=== PATIENT | female | born 1950 | race Caucasian/White ===

== ENCOUNTER → 2017-07-08 | Outpatient (CLI) | payer OTHER ==
[~2017-07-08] MED LIST: CELEXA40 MG PO; FENTANYL PA12 MCG/HR TP; HUMIRA20 MG/0.4 SQ; HYDROCODON-ACE1 EAC7 PO; HYDROCODONE-AP1 EAC6 PO; HYDROXYCHLOROQ200 M1 PO; MELOXICAM7.5 MG PO; MOBIC7.5 MG PO; NAPROSYN500 MG PO; VITAMIN D32000 UNIT PO
== END ==
LOC: CAT 10:56
DX: R07.9 Chest pain, unspecified (principal); R91.1 Solitary pulmonary nodule

== ENCOUNTER → 2017-08-11 | Outpatient (CLI) | payer OTHER | LOC: RAD 08-06 01:59 | DX: Z12.31 Encounter for screening mammogram for malignant neoplasm of breast (principal) ==

== ENCOUNTER → 2018-09-01 | Outpatient (CLI) | payer OTHER | LOC: RAD 08-12 12:05 | DX: Z12.31 Encounter for screening mammogram for malignant neoplasm of breast (principal) ==

== ENCOUNTER 2019-05-20 09:06 | Inpatient (IN) | payer OTHER ==
[~2019-05-20] VITALS: Ht 167.6 cm; Wt 63.5 kg
--- NOTE | ~2019-05-20 | HC ---
[facility] [place] [address] CONSULTATION Name: DARIUS LOPEZ Room #: 522B-B [facility] IN M.R.#: [id number] Admission: 05/20/19 ������������������ Attend Phys: Mitchel Rosen DO Discharge: 05/21/19 ������������������ Date of : 54 Report #: [id number] THIS REPORT FOR: //name// CC: Mitchel Rosen rAon Walker DATE OF SERVICE: 05/20/2019 REASON FOR CONSULTATION: Globus sensation. HISTORY OF PRESENT ILLNESS: The patient is a 69-year-old female known to our clinic from previous encounters. She presented to the Emergency Room this morning with increasing anxiety over globus sensation that had been present for an extended period of time. She had presented with this in our clinic in the remote past. She has denied any dysphagia, odynophagia, aspiration, neck pain or discomfort. She denies any sinus or rhinitis symptomatology. The discomfort was to the point she presented to Emergency Room with extreme anxiety and inappropriate comments about her mental health being affected by this sensation. I was asked to evaluate her in the psychiatric unit for elimination of the pathology that may be causing this sensation. While in the Emergency Department, she did have a soft tissue lateral neck x-ray, which showed an opaque small area on the posterior wall that appeared to be in the upper esophagus. PAST MEDICAL AND SURGICAL HISTORY: Notable for appendectomy, longstanding history of osteoarthritis, anxiety, depression and other psychiatric disorders. MEDICATIONS: At the time she was seen include atorvastatin, clonazepam on a p.r.n. basis, duloxetine, vitamin D . REVIEW OF SYSTEMS: Aside from the above mentioned GI and psychiatric history, is otherwise unremarkable. PHYSICAL EXAMINATION: She appears her stated height and age. She is anxious. She was examined in the psychiatric office. She is alert and oriented. She has a normal voice. She appeared very anxious. Examination of the ears was unremarkable for any impacting cerumen. Middle ear spaces were normal. Intranasal examination showed no sign of nasal polyposis or infection. Nasal mucosa is otherwise unremarkable. Oral cavity and oropharynx were otherwise normal. Palpation of the anterior neck revealed no adenopathy or thyromegaly. There are no midline neck masses. The pharynx within normal with a small. Flexible laryngoscopy was performed with the findings noted within the progress note. ASSESSMENT: History of globus sensation with increasing anxiety. No [facility] [address] [place] [address] CONSULTATION Name: DARIUS LOPEZ TAMIKA Room #: 522B-B [facility] IN M.R.#: [id number] Admission: 05/20/19 ������������������ Attend Phys: Mitchel Rosen DO Discharge: 05/21/19 ������������������ Date of : 54 Report #: [id number] hypopharyngeal or laryngeal pathology is identified. I suspect this is all supratentorial, may be associated with some gastroesophageal or laryngopharyngeal reflux. To further evaluate the area of concern seen on the soft tissue x-ray, would actually require an EGD and she may consider consultation with gastroenterology as an outpatient for this. Thank you for the consultation. PROCEDURE NOTE: After obtaining consent, topical Pontocaine anesthesia was applied to the right naris. After waiting several minutes, flexible nasal laryngoscope was advanced through the right naris and into the nasopharynx, oropharynx and hypopharynx. Visualization showed healthy-appearing nasal mucosa. Inferior middle turbinates were unremarkable. Postcricoid area appears normal. Nasopharynx was unremarkable. Oropharynx showed normal appearing mucosa. The laryngeal apparatus is intact. Both vocal cords moved to midline normally. There was a moderate amount of postcricoid present. The piriform sinus mucosa appears unremarkable. The epiglottis and vallecula were normal. The scope was withdrawn. The patient tolerated the procedure well. ��������������������������������������������� ���������������������������������������� By: ��������������������������������������������� [id number] Juan Manuel Crockett MD /jonathan
[2019-05-20 09:07] VITALS: BP 148/99
[2019-05-20] MEDS ORDERED: XANAX 0.5 MG0.5 MG PO (09:33)
[2019-05-20] MEDS ORDERED: LIPITOR10 MG PO (09:34)
[2019-05-20 09:55] LABS: ABSOLUTE NEUTROPHILS 4.4 thou/uL (1.4-8.2); BASOPHILS 0.6 % (0.0-2.0); EOSINOPHILS 1.9 % (0.0-3.0); HEMOGLOBIN 13.2 gm/dL (12.0-15.0); LYMPHOCYTES 22.2 % (24.0-44.0); MCH 30.8 pg (26.0-34.0); MCHC 33.8 g/dL (28.0-37.0); MCV 91.1 fL (80.0-100.0); MONOCYTES 6.1 % (1.0-8.0); PLATELET COUNT 240 thou/uL (150-400); POLYS 69.2 % (36.0-66.0); RBC 4.28 mil/uL (4.20-5.00); RDW 12.8 % (10.5-14.5); WBC 6.4 thou/uL (4.0-11.0)
[2019-05-20 09:59] LABS: CALCIUM 9.3 mg/dL (8.5-10.1); CREATININE 0.6 mg/dL (0.6-1.0); POTASSIUM 3.8 mmol/L (3.5-5.1)
[2019-05-20 10:01] LABS: URINE BILIRUBIN NEGATIVE (Negative); URINE BLOOD NEGATIVE (Negative); URINE CLARITY CLEAR; URINE COLOR YELLOW; URINE GLUCOSE-RANDOM* NEGATIVE (Negative); URINE KETONES NEGATIVE (Negative); URINE LEUKOCYTES NEGATIVE (Negative); URINE NITRITE NEGATIVE (Negative); URINE PROTEIN (DIPSTICK) NEGATIVE (Negative); URINE SPECIFIC GRAVITY <= 1.005 (1.005-1.035); URINE UROBILINOGEN 0.2 E.U./dl (0.2-1.0)
[2019-05-20 10:05] LABS: ALBUMIN 3.8 g/dL (3.4-5.0); TOTAL BILIRUBIN 0.5 mg/dL (<0.1-1.0); TOTAL PROTEIN 7.7 g/dL (6.4-8.2)
[2019-05-20 12:13] VITALS: BP 160/91
[2019-05-20] MEDS ORDERED: CYMBALTA60 MG PO (13:39)
[2019-05-20 15:06] VITALS: BP 156/83
--- NOTE | 2019-05-20 15:16 | NUR ---
69 YEAR OLD FEMALE ARRIVES TO UNIT VIA WHEELCHAIR FROM ER WITH REPORTED INCREASE IN DEPRESSION,ANXIETY. DURING ADMIT INTERVIEW IS TEARFIL STATING "I CAN'T HANDLE THIS I FEEL LIKE I AM IN HELL-I CAN'T STOP CRYING-I CAN'T FUNCTION" DENIES SUICIDAL IDEATION NOW OR IN PAST-DOES REPORT INITIAL AND TERMINAL INSOMNIA,DECREASED APPETITE. CONVERSATION IS SOMATICALLY FOCUSED-REFERING TO LONG STANDING HX OF DYSPHAGIA AND DESPITE EGD DONE APPROX 9 MTHS AGO IN ADDITION TO X-RAY DONE TODAY IN ER WHICH WERE NEGATIVE FOR ACUTE FINDINGS STATES SEVERAL TIMES THAT SHE BELIEVES SHE HAS CANCER "IT IS MY OWN FAULT I RECENTLY STOPPED SMOKING" ORIENTED TO ROOM AND UNIT-BELONGINGS INVENTORY COMPLETED-MEDS VERIFIED WITH OP PHARAMCY- PT DOES REPORT MANRIQUE PAIN RATED A 5 ON 1-10 SCALE-TYLENOL 650MG PO PRN GIVEN AT 1400 WITH GOOD RESULTS. GAIT STEADY WITHOUT ASSISTIVE DEVICES-
--- NOTE | 2019-05-20 16:33 | NUR ---
PSYCHOSOCIAL ASSESSMENT Diagnosis: DEPRESSION,THROAT PAIN Admit Date: 05/20/19 Psychiatrist: JONI Symptoms associated with current admission: Anxiety/panic Depressed mood Presenting problems: Worrying a lot. Throat hurting and ears hurting. Pt. stated that she hates her job. Pt. stated that she feels that she is "OCD" and that she can't seem to enjoy anything anymore. Precipitating Factors: Work problems Medical condition Comments: History of High Risk Behavors: Other Suicide Risk Factors: E A-Signs of alcohol/substance abuse w/ suicide ideation B-Recent suicidal thoughts or attempts C-Recent thoughts or attempts of harming someone else D-Altered mental status due to psychiatric/chem dep etiology E-The behavior exists - add comment PSYCHIATRIC HISTORY Age of onset: 69 Prior hospitalizations: Hospital names and dates, if available: Most Recent Outpatient HX: Denies prior OP services Additional information: Legal Status: Voluntary Guardian/Conservatorship type: None Contact name: Contact phone: Other: Name: Phone: Other legal issues: (Arrests/convictions Current Status) No recent hx P.O. Name and Phone #: FAMILY HISTORY Place of : [place] Raised in: [place] # Siblings & order: Two sisters, Three Brothers Describe relationships within family of origin: Pt. stated that she has a close relationship with her family. Any psychiatric or substance abuse problems within family of origin: N Has patient been sexually or physically abused, neglected or been taken advantage of financially? N Has the abuse been reported? N Other pertinent family information: Marital history/significant relationships: Domestic violence: N Children ages & who is caring for them: Two boys ages 45 and 43, Two girls 33 and 31 Is child welfare involved? N Drug history: Pt. reports thats she only takes hydrocodone that is perscribed for Osteoprosis Alcohol Use: Yes, current Frequency: Special Occasions Quantity: 1-2 Have you ever felt you ought to Cut down on drinking? Have people Annoyed you by criticizing your drinking? Have you ever felt bad or Guilty about your drinking? 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 AXIS SCREENING TOOL [place] I Mood Disorders: Depression Anxiety Disorder [place] II Personality/Mental Retardation: [place] III Medical Impairment: Other Functional-i.e. blindness [place] IV Problem(s) with: [place] V: Additional Richmond comments: PERSONAL BACKGROUND Relevant cultural issues (ethnicity, values, beliefs, spiritual): None Mormonism: Christianity Importance of restorationist to patient: Medium What hobbies/interests does the patient have? Reading, spending time with grandkids, watching TV. Sexual orientation (relevant impact to current treatment): Female : Where did you serve: Branch of service: Rank: Discharge status: Are you a combat ? Occupational/Work: Do you work? Y Do you want to work? Y How many hours do you work/week? 40 How many jobs have you had in the past 5 years? 1 Do you need assistance finding a job? N Does the patient need assistance in job training? N Source of income: Employment SSI Does patient have a Payee? N Payee name: Approximate monthly income: 1999 Does patient have adequate funds for next 30 days? 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 is livin[address] [place] [address] [place] [address] Does the patient plan to continue there after DC? Yes Patient lives with: Child/children Will family/significant other be involved in treatment? Other community support services utilized: None Support System Available (family/friend) Name: Gloria Hinds Phone: [phone] Relationship: Daughter Name: Phone: Relationship: Name: Phone: Relationship: Patient strengths: Family support Motivated Humor Education Patient's assets: Good self care Adequate education Employed Verbal Own transportation Positive support system Patient's weaknesses: Chronic hx mental illness Health problems Other Additional weaknesses: Patient's perception of current social insurance administrator/case management needs: Pt. stated that she feels that she is pretty "OCD" and organized. PRELIMINARY DISCHARGE PLAN Discharge plan/Community resource contacts: Plan to dc back to apartment. Pt. stated that she would like to follow up with some counceling. Discharge needs: Pt. stated that she may need help setting up counceling, however that she sees a psychiatrist that may be able to assist with this. Problems anticipated on discharge: Comments: (factors affecting DC plan/pt. response/interventions) Pt. stated that she is hoping that she can learn some coping techniques to assist her with further issues later on.
[2019-05-20 19:20] VITALS: BP 102/54
--- NOTE | 2019-05-20 22:59 | NUR ---
ASSUMED CARE @ 20:30, COOPERATED WITH ASSESSMENT, HS MEDS TAKEN WHOLE WITH WATER. PAIN MEDS NORCO AND ANXIETY MEDS GIVEN @ 21:30 FOR MANRIQUE PAIN AND ANXIETY. RESOLVED UPON ASSESSMENT, PT ASLEEP, EYES CLOSED, RESPIRATIONS EVEN AND UNLABORED. WILL COTINUE TO MONITOR Q 12 MINUTES FOR PT SAFETY.
[2019-05-20 23:15] VITALS: BP 102/54
[2019-05-20 23:30] VITALS: BP 102/54
--- NOTE | 2019-05-21 05:34 | NUR ---
slept 11.2 hours overnight.
[2019-05-21 07:30] VITALS: BP 100/59
[2019-05-21] MEDS ORDERED: CARAFATE 1 GM TA1 G1 PO (10:46)
[2019-05-21] MEDS ORDERED: PROTONIX40 M1 PO (10:47)
[2019-05-21 12:02] VITALS: BP 102/54
--- NOTE | 2019-05-21 14:25 | NUR ---
DISCHARGE INSTRUCTIONS REVIEWED WITH PATIENT INCLUDING FOLLOW UP WITH GI-MESSAGE LEFT WITH SCHEDULING AT DR. HAN OFFICE RE F/U-NO CALL BACK RECEIVED AT TIME OF DC SO PT INSTRUCTED TO CALL NUMBER PROVIDED TO SCHEDULE-SHE STATES UNDERSTANDING. DC MEDS REVIEWED-PT DENIES QUESTIONS/CONCERNS-RX PROVIDED. PT ACCOMPNIED TO PRIVATE VEHICLE-ALL BELONGINGS SENT. DENIES SI/SH/HI AT TIME OF DC
[2019-05-21 14:29] VITALS: BP 102/54
[2019-05-21 14:32] VITALS: BP 102/54
--- NOTE | 2019-05-24 07:40 | H ---
[facility] [place] [address] HISTORY AND PHYSICAL Name: DARIUS LOPEZ Room #: 522B-B [facility] IN M.R.#: [id number] Admission: 05/20/19 ������������������ Attend Phys: Mitchel Rosen DO Discharge: 05/21/19 ������������������ Date of : 54 Report #: [id number] THIS REPORT FOR: //name// CC: Mitchel Rosen Aron Walker DATE OF SERVICE: 05/20/2019 INPATIENT PSYCHIATRIC EVALUATION ATTENDING PHYSICIAN: Mitchel Rosen DO SPINNING OPERATOR: Corey Guardado MD ADDITIONAL PRODUCTION WOOD CRAFTSMAN: Consulted by Dr. Lawrence in the ER and with Dr. Crockett of Otolaryngology, who has already completed his consultation. REASON FOR ADMISSION: States she is losing her mind, cannot function, not enjoying life, unable to perform a safe discharge plan in the Emergency Room. HISTORY OF PRESENT ILLNESS: This is a 69-year-old female, who is x 3 years. 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 She presented to the Emergency Room for psychiatric evaluation because of the past 2 weeks increased anxiety, emotional lability, difficulty in sleeping, concentrating and focusing. She also is complaining of bilateral ear pain and sensation of a foreign body and almost a globus sensation in her throat, who is concerned she has throat cancer. She reports to be a lifelong smoker. She states "I'm losing my mind, I can't look like this." She recently returned from vacation and did not enjoy due to the pain. Interestingly, she had an appointment with Dr. Crockett this afternoon, but he was kind enough to see her on the inpatient Geriatric Psych Unit. She has seen Dr. Irwin one time she says about 2 months ago and is currently on duloxetine. She stated in the ER she has a feeling like "I'm having a nervous breakdown," complains of uncontrolled crying, otalgia. PAST MEDICAL AND SURGICAL HISTORY: C-sections in 1984 and 1986, hysterectomy at age 42, appendectomy at age 11, triple joint fusion of the right ankle in 2009. HOME MEDICATIONS: Hydrocodone/APAP 5/325 p.o. t.i.d. p.r.n. for pain, alprazolam 0.5 mg 3 times a day p.r.n. anxiety, atorvastatin 10 mg p.o. at bedtime, vitamin D3 2000 international units p.o. daily, duloxetine 120 mg p.o. daily. She no longer takes citalopram, Humira and naproxen. She last smoked this morning. REVIEW OF SYSTEMS: From the Emergency Room; [address] [address] HISTORY AND PHYSICAL Name: DARIUS LOPEZ TAMIKA Room #: 522B-B [facility] IN M.R.#: [id number] Admission: 05/20/19 ������������������ Attend Phys: Mitchel Rosen DO Discharge: 05/21/19 ������������������ Date of : 54 Report #: [id number] CONSTITUTIONAL: Denied fever, chills, malaise, or unexplained weight change. EYES: Denies eye pain, visual change or discharge. HENT: Reports globus sensation, hoarseness. Denies neck stiffness. RESPIRATORY: Denies cough, shortness of breath, hemoptysis or respiratory distress. CARDIOVASCULAR: Denies chest pain and chest pain with exertion or edema. GASTROINTESTINAL: Denies abdominal pain, nausea, vomiting or diarrhea. GENITOURINARY: Denies burning, frequency or dysuria. MUSCULOSKELETAL: Denies back pain, joint pain, muscle weakness or myalgias. SKIN: Denies rash. NEUROLOGIC: Denies weakness, headache or loss of consciousness. PSYCHIATRIC: As above. Otherwise, 10-point review of systems was negative. DIAGNOSTIC STUDIES: X-ray of soft tissue 2-view of the neck, there was a small calcification anterior on the spine at C6-C7, which could reflect a tiny foreign body within the proximal esophagus. LABORATORY DATA: Laboratories from the ER; sodium 140, potassium 3.8, chloride 104, bicarb 26, BUN 17, creatinine 0.6, estimated GFR 100, glucose 120, calcium 9.3. Total bili 0.5, AST 16, ALT 20, alk phos 106, total protein 7.7, albumin 3.8. White count 6.4, H and H 13.3 and 39.0, platelets 240. Urinalysis is negative. ADDITIONAL INFORMATION FROM BEDSIDE INTERVIEW: She feels like she is having discrete panic attacks. She has had a longtime history of worry and panic- as her son who she lives with describes. ADDITIONAL MEDICAL HISTORY: Reports recent diagnosis of obstructive sleep apnea, she is currently on CPAP. SOCIAL HISTORY: Reports she has been twice , has 4 kids, multiple grandkids. Latter-Day is Protestant. She denies physical, sexual or emotional abuse history. Her next appointment with Dr. Irwin' is on 06/03/2019 and as stated, lives with her son. ALLERGIES: Known to MORPHINE. MUSCULOSKELETAL EXAMINATION: Normal gait and station. MENTAL STATUS EXAMINATION: This is a well-developed, fairly nourished, fair dressed female appearing stated age. Her height today was 167.64 cm, 5 feet 6 inches to 5 feet 7 inches; BMI is around 22.6, so perfect weight. Attention intact. Concentration intact. Speech normal rate and volume. 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 Mood; affect congruent, constricted, but anxious, not tending towards euthymic. Denied auditory, visual, or tactile hallucination. Denied suicidal intent or plan. Denied homicidal intent or plan. Some helplessness. No hopelessness once the ENT gave her good report. Insight fair. Judgment fair. Fund of knowledge is average range. FORMULATION: A 69-year-old female presenting to the Emergency Room with progressive now incapacitating anxiety and acute fear of having a serious lesion in her neck. DIAGNOSES AT THIS TIME: Panic disorder, adjustment disorder with disturbance of emotions, resolving; tobacco dependence. Medical comorbidities include hyperlipidemia, spasmodic dysphonia, empiric esophagitis with possible foreign body lesion in the proximal esophagus. RECOMMENDATIONS AND PLAN: Evaluate, stabilize, and obtain collateral. At this point, we will start her on Protonix 40 mg b.i.d. and Carafate 1 g a.c. and at bedtime. Regarding her psychiatric medications; continue duloxetine 120 mg p.o. daily and continue alprazolam 0.5 mg, we will make it scheduled t.i.d. I went ahead and ordered hydrocodone 5/325 p.o. q. 6 hours p.r.n. for pain level 5-10. She has p.r.n. Tylenol ordered. Other house medications are ordered. The patient is requesting discharge tomorrow if she has a good night and there are no alarming concerns. I will go ahead and make it a regular discharge tomorrow afternoon. I would like her to get a Gastroenterology appointment and a Psychotherapist appointment done by social work. Time spent on interview, evaluation, review of records, and coordination of care for this patient is approximately 60 minutes. strengths: works, has insurance, family support weaknesses, long hx on anxiety ��������������������������������������������� <ELECTRONICALLY SIGNED> ���������������������������������������� By: Mitchel Rosen DO ��������������������������������������������� 05/24/19 0740 [id number] Mitchel Rosen DO /nt
--- NOTE | 2019-05-24 07:52 | D ---
[facility] [place] [address] DISCHARGE SUMMARY Name: DARIUS LOPEZ Room #: 522B-B [facility] IN M.R.#: [id number] Admission: 05/20/19 ������������������ Attend Phys: Mitchel Rosen DO Discharge: 05/21/19 ������������������ Date of : 54 Report #: [id number] THIS REPORT FOR: //name// CC: Mitchel Rosen Aron Walker DATE OF SERVICE: 05/21/2019 ATTENDING PHYSICIAN: Mitchel Rosen DO. FISH BIN TENDER: Corey Guardado MD. ADDITIONAL COOKING INSTRUCTOR: Dr. Crockett of Otolaryngology. DISCHARGE DIAGNOSES: Major depressive disorder, recurrent, moderate degree. Unspecified anxiety, adjustment disorder with anxiety, resolved. Diagnosis of presumptive esophageal spasm. Tobacco dependence with recent cessation efforts. DISCHARGE DIET: Regular. ACTIVITY LEVEL: As tolerated. No alcohol, no illicit drugs, continued smoking abstinence was strongly encouraged. DISCHARGE APPOINTMENTS OR PLAN: She is returning to her home where she lives with her son. Appointments were made for the patient including Gastroenterology with Dr. Rome. Psychiatry, Dr. Irwin, psychotherapist was strongly encouraged. REASON FOR ADMISSION: Presented to the ED one-week feelings of increased anxiety, emotional and uncontrolled crying, unable to agree to safety. HOSPITAL COURSE: The patient was admitted to Geriatric Psychiatric Unit. There was a concern of a lesion in her throat. She had a globus sensation and a direct endoscopy was performed on the Geriatric Psych Unit. She was in my office, no foreign body was found. X-ray done in the ER showed calcification evolving coming from the spine. Dr. Crockett recommended Gastroenterology consultation which was felt to be done outpatient. The patient's mood and anxiety rapidly improved overnight. She requested discharge on Friday. She was not suicidal or homicidal. LABORATORY DATA: CBC grossly normal. CMP grossly normal. Urinalysis was negative. UDS was not done. IMAGING: Soft tissue x-ray of the neck showed bilateral cervical soft tissues, normal variation with partial fusion C2 through C3, there is moderate mid to [facility] [address] [place] [address] DISCHARGE SUMMARY Name: DARIUS LOPEZ Room #: 522B-B [facility] IN M.R.#: [id number] Admission: 05/20/19 ������������������ Attend Phys: Mitchel Rosen, Discharge: 05/21/19 ������������������ Date of : 54 Report #: [id number] lower degenerative cervical changes, small calcification through the spine at C6-C7 level. VITAL SIGNS: Temperature 36.9, pulse 72, respirations 18, BP 102/54. MENTAL STATUS EXAMINATION: This is a well-developed, fairly-nourished female appearing stated age. Attention intact. Concentration intact. Speech normal rate. Thought process is linear and goal directed. Thought content, focused on discharge. Mood and affect, mood euthymic, fair range. Denied SI, HI. Denied hopelessness, helplessness. Memory not formally tested. Insight fair. Judgment fair. Fund of knowledge average. PROGNOSIS: Good if she maintains presence in psychotherapy and psychiatric care. ��������������������������������������������� <ELECTRONICALLY SIGNED> ���������������������������������������� By: Mitchel Rosen DO ��������������������������������������������� 05/24/19 0752 [id number] Mitchel Rosen DO /nt
== END 2019-05-21 14:30 | disposition home or self-care (01) | DRG 885 ==
LOC: ER 09:06 → SBH 11:53 → EROBS 11:53 → SBH 11:53
PROVIDERS: Emergency Medicine; ADMIT Psychiatry & Neurology Psychiatry
PROC: 0CJS8ZZ Inspection of Larynx, Via Natural or Artificial Opening Endoscopic (ICD-10-PCS; principal; 2019-05-20)
DX: F33.9 Major depressive disorder, recurrent, unspecified (principal); F41.0 Panic disorder [episodic paroxysmal anxiety]; F43.20 Adjustment disorder, unspecified; M19.90 Unspecified osteoarthritis, unspecified site; F41.9 Anxiety disorder, unspecified; Z90.49 Acquired absence of other specified parts of digestive tract; Z90.710 Acquired absence of both cervix and uterus; Z88.6 Allergy status to analgesic agent; Z79.899 Other long term (current) drug therapy
CPT/HCPCS: 10880

== ENCOUNTER → 2019-10-07 | Outpatient (CLI) | payer OTHER ==
[~2019-10-07] MED LIST changes: +CARAFATE 1 GM TA1 G1 PO; +CYMBALTA60 MG PO; +LIPITOR10 MG PO; +PROTONIX40 M1 PO; +XANAX 0.5 MG0.5 MG PO
== END ==
LOC: BC 11:02 → RAD 14:21
DX: Z12.31 Encounter for screening mammogram for malignant neoplasm of breast (principal)

== ENCOUNTER → 2020-10-25 | Outpatient (CLI) | payer OTHER | LOC: BC 10-17 15:24 | PROVIDERS: ATTEND Internal Medicine | DX: Z12.31 Encounter for screening mammogram for malignant neoplasm of breast (principal) ==

== ENCOUNTER → 2021-10-03 | Outpatient (CLI) | payer OTHER ==
[~2021-10-03] MED LIST changes: +BENTYL 10 MG CA10 MG PO; +CEPHALEXIN500 MG PO; +LORAZEPAM 0.50.5 MG PO; +SEROQUEL 50 MG50 M1 PO; +ZOLOFT 50 MG TA50 MG PO
== END ==
LOC: LAB 05:34
PROVIDERS: ATTEND Student in an Organized Health Care Education/Training Program
DX: Z01.812 Encounter for preprocedural laboratory examination (principal); Z20.822 Contact with and (suspected) exposure to COVID-19

== ENCOUNTER → 2021-10-05 | Outpatient (CLI) | payer OTHER ==
[~2021-10-05] VITALS: Ht 170.2 cm; Wt 64.9 kg
--- NOTE | ~2021-10-05 | P ---
[facility] [place] [address] PROCEDURE REPORT Name: DARIUS LOPEZ Room #: [facility]#: [id number] Admission: 10/05/21 Attend Phys: Chalino Roth Discharge: Date of : 54 Report #: [id number] THIS REPORT FOR: cc: Pedro Luis Vázquez MD,Chalino Coelho MD, MD ~ cc: Dr. Pedro Luis Vázquez DATE OF SERVICE: 10/05/2021 PROCEDURE PERFORMED: Colonoscopy. HISTORY OF PRESENT ILLNESS: The patient is a 71-year-old female who presents today for routine screening colonoscopy. She denies any symptoms, no family history of colon cancer. DESCRIPTION OF PROCEDURE: The risks and benefits of the procedure were explained to the patient, those risks including but not limited to bleeding, perforation and the risk of sedation. She understood these risks and gave informed consent. Sedation was given using propofol per anesthesia. Next, a digital rectal exam was initially performed, which was normal. Next, using a standard Olympus colonoscope, the scope was placed in the patient's anus and advanced under direct vision to the cecum. The overall prep was good. The cecum and ileocecal valve were normal in appearance. The ascending, transverse and descending colon were normal. A few scattered diverticula were noted in the sigmoid colon. No evidence of inflammation, otherwise normal. The rectal mucosa was normal. On retroflexion, no abnormalities were noted. The scope was then withdrawn and the procedure terminated. The patient tolerated the procedure well. IMPRESSION: 1. Sigmoid diverticulosis. 2. Otherwise, normal colonoscopy. RECOMMENDATIONS: Repeat colonoscopy in 10 years. Thank you for allowing me to participate in her care. By: 0949 07 Chalino Rome MD /nt
== END | disposition home or self-care (01) ==
LOC: GI
PROVIDERS: ATTEND Specialist
DX: Z12.11 Encounter for screening for malignant neoplasm of colon (principal); K57.30 Diverticulosis of large intestine without perforation or abscess without bleeding; J43.9 Emphysema, unspecified; F41.9 Anxiety disorder, unspecified; E78.00 Pure hypercholesterolemia, unspecified; Z98.890 Other specified postprocedural states; Z79.899 Other long term (current) drug therapy; Z87.891 Personal history of nicotine dependence; Z90.49 Acquired absence of other specified parts of digestive tract; Z90.710 Acquired absence of both cervix and uterus; Z88.0 Allergy status to penicillin; Z88.8 Allergy status to other drugs, medicaments and biological substances
CPT/HCPCS: 62110; 62900

== ENCOUNTER → 2021-10-18 | Outpatient (CLI) | payer OTHER | LOC: BC 11:20 | PROVIDERS: ATTEND Family Medicine | DX: Z12.31 Encounter for screening mammogram for malignant neoplasm of breast (principal); N64.89 Other specified disorders of breast ==